=== PATIENT | male | born 1985 | race Caucasian/White ===

== ENCOUNTER → 2024-12-13 | Emergency (ER) | payer SELFPAY ==
[2024-12-13 02:26] LABS: #Basophils 0.03 10x3/uL (0.0-0.2); #Eosinophils 0.03 10x3/uL (0.0-0.5); #Monocytes 0.35 10x3/uL (0.0-1.1); #Neutrophils 2.58 10x3/uL (1.5-8.4); %Basophils 0.6 % (0.0-2.0); %Eosinophils 0.6 % (0.0-6.0); %Lymphocytes 41.7 % (18.0-47.0); %Monocytes 6.8 % (0.0-10.0); %Neutrophils 49.9 % (40.0-75.0); Hematocrit 52.2 % (38.8-50.0); Hemoglobin 18.1 g/dL (13.5-17.5); Mean Corpuscular Hemoglobin 30.1 pg (27.0-33.0); Mean Corpuscular Volume 86.9 fL (81.2-95.1); Platelet Count 197 10x3/uL (150-450); Red Blood Cell (RBC) Count 6.01 10x6/uL (4.32-5.72); White Blood Cell (WBC) Count 5.16 10x3/uL (3.5-10.5)
[2024-12-13 02:44] LABS: Acetaminophen Less than 10 mcg/mL (Less than 10); Salicylate Less than 8.0 mg/dL (Less than 8.0)
[2024-12-13 02:45] LABS: ALT (SGPT) 34 U/L (Less than 45); AST (SGOT) 25 U/L (11-34); Albumin 4.7 g/dL (3.1-4.5); Alkaline Phosphatase 113 U/L (40-110); Anion Gap 19 mmol/L (10-20); BUN (Urea Nitrogen) 18 mg/dL (8.9-20.6); Bilirubin, Total 0.6 mg/dL (0.3-1.2); Calc. Creatinine Clearance 0 mL/min (70-130); Calcium 9.5 mg/dL (7.8-10.44); Carbon Dioxide 21 mmol/L (22-29); Chloride 107 mmol/L (98-107); Globulin 2.9 g/dL (2.4-3.5); Glucose 103 mg/dL (70-105); Potassium 3.7 mmol/L (3.5-5.1); Sodium 143 mmol/L (136-145)
[2024-12-13 02:48] LABS: Cocaine Metabolite Screen Negative (Negative); THC/Cannabinoid Screen Negative (Negative); Tricyclic Screen Negative (Negative)
== END ==
LOC: CSHERS 01:32
DX: R45.850 Homicidal ideations (principal); N17.9 Acute kidney failure, unspecified; I10 Essential (primary) hypertension; F17.200 Nicotine dependence, unspecified, uncomplicated
CPT/HCPCS: 36415; 80053; 80306; 80307; 85025; 99285